=== PATIENT | female | born 1950 | race Caucasian/White ===

== ENCOUNTER 2022-08-09 11:19 | Outpatient (CLI) | payer MEDICARE ==
--- NOTE | 2022-08-09 16:52 | XRAY Report ---
PROCEDURE: Wrist 3 View LT INDICATIONS: INJURY OF LEFT HAND,SUBSEQUENT ENCOUNTER TECHNIQUE: views of the wrist were acquired. COMPARISON: None. FINDINGS: Bones: No fractures or dislocations. No suspicious bony lesions. Periarticular osteophyte formati on at the radiocarpal, scaphotrapezial, and first metacarpal joints, indicating osteoarthritis. Scaphoid view: Not requested Soft tissues: No suspicious soft tissue calcifications or masses. IMPRESSION: Osteoarthritis. No acute fracture. No osseous lesion. If symptoms and/or clinical suspicion for patho logy continue, further assessment with repeat plain films, or advanced imaging (e.g., CT, MRI, or bon e scan) is recommended for further assessment. Reviewed by: Thi Minor MD on 08/09/2022 4:50 PM PDT Approved by: Thi Minor MD on 08/09/2022 4:50 PM PDT Station ID: [id number]
== END 2022-08-09 11:20 | disposition home or self-care (01) ==
LOC: DI.S 11:19
PROVIDERS: ATTEND Family Medicine
DX: M19.032 Primary osteoarthritis, left wrist (principal); S69.92XD Unspecified injury of left wrist, hand and finger(s), subsequent encounter

== ENCOUNTER 2022-11-18 09:37 | Outpatient (CLI) | payer MEDICARE ==
--- NOTE | 2022-11-18 11:23 | DEXA Report ---
PROCEDURE: Dexa Spine and/or Hip INDICATIONS: OSTEOPOROSIS TECHNIQUE: Dual energy x-ray absorptiometry (DXA) was performed on a [employer] System. Regions measur ed are the AP Spine, femoral neck, and if needed forearm. COMPARISON: None. FINDINGS: Lumbar Spine: Bone Mineral Density 1.038 g/cm/cm,T score -1.2. 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 Bone Mineral Density 0.588 g/cm/cm, T score -1.1. (T score greater or equal to -1.0: NORMAL) (T score from -1.1 to -2.4: OSTEOPENIA) (T score less than or equal to -2.5 to: OSTEOPOROSIS) Impression: By WHO criteria, this patient has low bone density (osteopenia). Patients with diagnosis of osteoporosis or osteopenia should have regular bone mineral density assess ment. For those eligible for Medicare, routine testing is allowed once every 2 years. Testing frequ ency can be increased for patients who have rapidly progressing disease or for those who are receivin g medical therapy to restore bone mass. Reviewed by: Amie Canales MD on 11/18/2022 11:22 AM PDT Approved by: Amie Canales MD on 11/18/2022 11:22 AM PDT Station ID: [id number]
== END 2022-11-18 09:38 | disposition home or self-care (01) ==
LOC: DI 09:37
PROVIDERS: ATTEND Family Medicine
DX: M85.89 Other specified disorders of bone density and structure, multiple sites (principal)